=== PATIENT | female | born 1990 | race Caucasian/White ===

== ENCOUNTER → 2017-10-27 | Outpatient (CLI) | payer BC ==
[2017-10-27 13:04] LABS: BASO # 0.1 x10^3/uL (0.0-0.2); BASO % 1 % (0-3); EOS # 0.2 x10^3/uL (0.0-0.7); EOS % 3 % (0-3); HEMATOCRIT 40.2 % (36.0-47.0); HEMOGLOBIN 13.8 g/dL (12.0-15.5); LYMPH # 2.7 x10^3/uL (1.0-4.8); LYMPH % 30 % (24-48); MEAN CORPUSCULAR HEMOGLOBIN 29 pg (25-35); MEAN CORPUSCULAR HGB CONC 34 g/dL (31-37); MEAN CORPUSCULAR VOLUME 83 fL (79-100); MONO # 0.5 x10^3/uL (0.0-1.1); MONO % 5 % (0-9); NEUT # 5.4 x10^3uL (1.8-7.7); NEUT % 61 % (31-73); PLATELET COUNT 360 x10^3/uL (140-400); RED BLOOD COUNT 4.84 x10^6/uL (3.50-5.40); RED CELL DISTRIBUTION WIDTH 13.5 % (11.5-14.5); WHITE BLOOD COUNT 8.9 x10^3/uL (4.0-11.0)
[2017-10-27 13:21] LABS: ALBUMIN 4.2 g/dL (3.4-5.0); ALBUMIN/GLOBULIN RATIO 1.1 (1.0-1.7); CALCIUM 9.3 mg/dL (8.5-10.1); CREATININE 0.8 mg/dL (0.6-1.0); GFR 87.4; TOTAL BILIRUBIN 0.3 mg/dL (0.2-1.0); TOTAL PROTEIN 7.9 g/dL (6.4-8.2)
== END | disposition home or self-care (01) ==
LOC: LAB 12:12
PROVIDERS: ATTEND Specialist
DX: M54.9 Dorsalgia, unspecified (principal)
CPT/HCPCS: 36415; 80053; 84443; 85025; 86431

== ENCOUNTER 2018-09-30 02:24 | Emergency (ER) | payer BC ==
[~2018-09-30] VITALS: Ht 165.1 cm; Wt 86.2 kg
[2018-09-30 02:30] VITALS: BP 134/84
[2018-09-30] MEDS ORDERED: IBUPROFEN 400 MG TABLET. PO ONE ×3 (02:53→03:00)
[2018-09-30] MEDS ORDERED: AMOXICILLIN 250 MG CAPSULE ONE (02:53)
[2018-09-30] MEDS ORDERED: NEOM10SO7 OT (02:57)
[2018-09-30] MEDS ORDERED: MELO7.5T29 PO (02:57)
[2018-09-30] MEDS ORDERED: PROM118S9 PO (02:57)
[2018-09-30] MEDS ORDERED: AMOX500T PO (02:57)
--- NOTE | 2018-09-30 02:57 | PHYS DOC ---
Past History Past Medical History: Anxiety, Asthma, Depression Smoking: Non-smoker Alcohol Use: Occasionally Drug Use: None Adult General Chief Complaint Chief Complaint: EARACHE/EAR PAIN HPI HPI Patient is a 27-year-old female presents complaining of bilateral ear pain that started last night. Right side is worse than the left. No significant relief with NyQuil. No drainage from the ears. No nausea or vomiting. No recent swimming. No fever. No dizziness. Nothing seems to make it better or worse. Pain is moderate to severe.[] Review of Systems Review of Systems Constitutional: Denies fever or chills [] Eyes: Denies change in visual acuity, redness, or eye pain [] HENT: Some nasal congestion is present. See history of present illness[] Respiratory: Denies cough or shortness of breath [] Cardiovascular: No chest pain or palpitations[] GI: Denies abdominal pain, nausea, vomiting, bloody stools or diarrhea [] : Denies dysuria or hematuria [] Musculoskeletal: Denies back pain or joint pain [] Integument: Denies rash or skin lesions [] Neurologic: Denies headache, focal weakness or sensory changes [] Endocrine: Denies polyuria or polydipsia [] All other systems were reviewed and found to be within normal limits, except as documented in this note. Allergies Allergies Allergies Coded Allergies Type Severity Reaction Last Updated Verified No Known Drug Allergies 09/30/18 No Physical Exam Physical Exam Constitutional: Well developed, well nourished, no acute distress, non-toxic appearance. [] HENT: Normocephalic, atraumatic, bilateral external ears normal, no pain with tragus tug. Right TM is erythematous, mild canal edema. Left TM is normal with a normal canal. Oropharynx moist, no oral exudates, nose with clear rhinorrhea. [] Eyes: PERRLA, EOMI, conjunctiva normal, no discharge. [] Neck: Normal range of motion, no tenderness, supple, no stridor. No cervical lymphadenopathy, no nuchal rigidity [] Cardiovascular:Heart rate regular rhythm, no murmur [] Lungs & Thorax: Bilateral breath sounds clear to auscultation [] Abdomen: Not examined. [] Skin: Warm, dry, no erythema, no rash. [] Back: No tenderness, no CVA tenderness. [] Extremities: No tenderness, no cyanosis, no clubbing, ROM intact, no edema. [] Neurologic: Alert and oriented X 3, normal motor function, normal sensory function, no focal deficits noted. [] Psychologic: Affect normal, judgement normal, mood normal. [] Current Patient Data Vital Signs Vital Signs Date Time Temp Pulse Resp B/P (MAP) Pulse Ox O2 Delivery O2 Flow Rate FiO2 09/30/18 02:30 98.7 86 18 98 Room Air EKG EKG [] Radiology/Procedures Radiology/Procedures [] Course & Med Decision Making Course & Med Decision Making Pertinent Labs and Imaging studies reviewed. (See chart for details) Medical decision making: Patient appears to have a right-sided otitis media with a mild otitis externa. No evidence of mastoiditis. No evidence of systemic toxicity. No meningitis or encephalitis. Some of this may also be related to an upper respiratory infection[] Dragon Disclaimer Dragon Disclaimer This electronic medical record was generated, in whole or in part, using a voice recognition dictation system. Departure Departure: Impression: Primary Impression: Right otitis media Additional Impression: Right otitis externa Disposition: 01 HOME, SELF-CARE Condition: IMPROVED Referrals: LESTER HOLGUIN MD (PCP) Follow-up in 2 days Patient Instructions: Otitis Externa, Otitis Media, Adult Additional Instructions: Drink plenty of fluids. Follow-up with your regular doctor in 2 days. Take the medication as prescribed. Return to the ER if worsening pain or any other concerns. Scripts D-Methorphan Hb/Prometh Hcl (PROMETHAZINE-DM SYRUP) 118 Ml Syrup 5 ML PO PRN Q4HRS for CONGESTION, #120 ML Prov: J LUIS MOTA DO 09/30/18 Neomycin/Polymyxin B Sulf/Hc ([id number]-VD EAR SOLN) 10 Ml Solution 4 DROP OT QID for otitis externa for 10 Days, MISC Prov: J LUIS MOTA DO 09/30/18 Meloxicam (MELOXICAM) 7.5 Mg Tablet 7.5 MG PO DAILY for PAIN, #20 TAB Prov: J LUIS MOTA DO 09/30/18 Amoxicillin (AMOXICILLIN) 500 Mg Tablet 500 MG PO TID for ear infection for 10 Days, #30 TAB Prov: J LUIS MOTA DO 09/30/18 Problem Qualifiers Primary Impression: Right otitis media Otitis media type: unspecified Qualified Codes: H66.91 - Otitis media, unspecified, right ear Additional Impression: Right otitis externa Otitis externa type: unspecified type Chronicity: acute Qualified Codes: H60.501 - Unspecified acute noninfective otitis externa, right ear J LUIS MOTA DO Sep 30, 2018 02:57
[2018-09-30] MEDS ORDERED: AMOXICILLIN 250 MG CAPSULE PO ONE (03:00)
== END 2018-09-30 03:10 | disposition home or self-care (01) ==
LOC: ER 02:24
DX: H66.91 Otitis media, unspecified, right ear (principal); H60.501 Unspecified acute noninfective otitis externa, right ear; H92.02 Otalgia, left ear; J45.909 Unspecified asthma, uncomplicated
CPT/HCPCS: 99283